=== PATIENT | female | born 1950 | race Caucasian/White ===

== ENCOUNTER 2019-02-10 05:26 | Emergency (ER) | payer OTHER, SELFPAY ==
[2019-02-10 05:34] VITALS: BP 145/95; PULSE 83; RESP 15; TEMP 37.7; O2SAT 100; BMI 24.7
--- NOTE | 2019-02-10 05:35 | ED.ARRPALP ---
HPI - Arrhythmia/Palpitations General Chief Complaint: Arrhythmia/Palpitations Stated Complaint: states AFIB Time Seen by Provider: 02/10/19 05:30 Source: patient and family Mode of arrival: ambulatory Limitations: no limitations History of Present Illness HPI narrative: 68-year-old female nonsmoker with recently diagnosed atrial fibrillation presents to the emergency department with her in the chief complaint of palpitations shortness of breath and lightheadedness that started suddenly at 4:00 a.m. this morning. She denies any chest pain. Two weeks ago she was traveling in [facility] when she had similar symptoms and presented to an emergency department there. She was diagnosed with newly discovered atrial fibrillation and while preparing to cardiovert the patient spontaneously converted while urinating. When discharge she was placed on Cardizem and 1 week anticoagulation. She followed up with her primary care provider and is scheduled for an echocardiogram later today. She is no longer anticoagulated. She is very certain that her symptoms started less than 2 hours ago. MD complaint: rapid heart beat, heart racing, palpitations and irregular heart beat Onset (ago): hour(s) Duration: constant Severity: moderate Context: occurred during rest Arrhythmia history: atrial fibrillation Associated symptoms: shortness of breath and anxiety Treatments prior to arrival: vagal maneuvers and calcium channel luis carlos Related Data Allergies Allergy/AdvReac Type Severity Reaction Status Date / Time Penicillins Allergy Verified 02/10/19 05:34 Sulfa (Sulfonamide Allergy Verified 02/10/19 05:34 Antibiotics) Review of Systems Constitutional Denies chills, Denies fever(s), Denies lethargy and Denies weakness Eyes Denies change in vision, Denies eye discharge, Denies irritation and Denies loss of vision ENT Ears, Nose, Mouth, and Throat: Denies change in voice, Denies neck pain and Denies sore throat Cardiovascular Denies chest pain, Reports irregular heart rhythm, Reports lightheadedness, Reports palpitations, Reports dyspnea, Denies dyspnea on exertion and Denies orthopnea Respiratory Denies cough, Reports dyspnea, Denies dyspnea on exertion and Denies wheezing Gastrointestinal Gastrointestinal: Denies abdominal pain, Denies change in bowel habits, Denies diarrhea, Denies nausea and Denies vomiting Genitourinary Denies hematuria, Denies flank pain, Denies urinary incontinence and Denies urinary urgency Musculoskeletal Denies neck pain Integumentary/Breasts Denies pruritus, Denies erythema, Denies rash and Denies wounds Neurologic Denies confusion, Denies loss of vision and Denies weakness Psychiatric Denies anxiety, Denies confusion, Denies depression, Denies homicidal ideation and Denies suicidal ideation Endocrine Reports palpitations Hematologic/Lymphatic Denies easy bruising Allergic/Immunologic Denies wheezing [facility] Medical History (Updated 02/10/19 @ 06:49 by Jozef Mario DO) Atrial fibrillation (Acute) Exam Narrative Exam Narrative: GENERAL: 68-year-old female is quite pleasant, alert and oriented, a bit anxious. HEAD: Atraumatic. Normocephalic. No temporal or scalp tenderness. EYES: Pupils equal round and reactive. Extraocular motions intact. No scleral icterus. No injection or drainage. ENT: Nose without bleeding, purulent drainage or septal hematoma. Throat without erythema, tonsillar hypertrophy or exudate. Uvula midline. Airway patent. NECK: Trachea midline. No JVD or lymphadenopathy. Supple, nontender, no meningeal signs. CARDIOVASCULAR: Tachycardic and irregular without murmurs, gallops, or rubs. RESPIRATORY: Clear to auscultation. Breath sounds equal bilaterally. No wheezes, rales, or rhonchi. GASTROINTESTINAL: Abdomen soft, non-tender, nondistended. No hepato-splenomegaly, or palpable masses. No guarding. EXTREMITIES: No clubbing, cyanosis, or edema. No joint tenderness, effusion, or edema noted. BACK: Nontender without deformity or crepitance. No flank tenderness. NEURO: AOx3. SKIN: No rash or erythema. Initial Vital Signs Initial Vital Signs: Vital Signs Temperature 100 F H 02/10/19 05:34 Pulse Rate 83 02/10/19 05:34 Respiratory Rate 15 02/10/19 05:34 Blood Pressure 145/95 H 02/10/19 05:34 Pulse Oximetry 100 02/10/19 05:34 Procedures Cardioversion Consent Signed: Yes Indication: Rapid Afib Stability: Stable Time out performed: Yes Preparation: potline monitor applied, pulse oximeter, capnometry used, supplemental O2 applied, suction/airway equipment at bedside and IV secured IV Propofol Dose (mgs): 40 Total Time of Sedation (Min): 10 Number of attempts (shocks): 1 Joules used: 50 Cardiac rhythm post-cardioversion: NSR Patient tolerated procedure sedation: Well Complications sedation: none Procedural Sedation Patient Age: Patient is 5yrs or older Consent signed: Yes Time out performed: Yes Indication: other ASA Class: I Mallampati Airway Classification: Class I Preparation: potline monitor applied, pulse oximeter, capnometry used, supplemental O2 applied, suction/airway equipment at bedside and IV secured IV Propofol dose (mg): 40 ED Sedation Level: Moderate (Concious) Patient Tolerated Procedure: Well Complications: none Course Orders Ordered: ED Orders 02/10/19 05:39 Basic Metabolic Panel Stat Complete Blood Count AUTO DIFF Stat Magnesium Stat Troponin & CK Cardiac Panel Stat 02/10/19 06:05 EKG-12 Lead Stat 02/10/19 07:00 EKG-12 Lead Stat 02/10/19 07:01 EKG-12 Lead Stat Sodium Chloride (Normal Saline 0.9%) 1,000 mls @ 150 mls/hr IV CONT REZA Last Admin: 02/10/19 05:53 Dose: 150 mls/hr Propofol (Diprivan) 40 mg IV NOW ONE Stop: 02/10/19 07:01 Discontinued Medications Diltiazem HCl (Cardizem) 10 mg IV NOW ONE Stop: 02/10/19 05:48 Last Admin: 02/10/19 05:53 Dose: 10 mg Reevaluation(s) Reevaluation #1: Patient given Cardizem 10 mg IVP a brief slowing from the A1 30s and 140s down to the 90s. During this episode a modified Valsalva maneuver was performed and no conversion to a sinus rhythm realized. Vital Signs - 8 hr 02/10/19 05:34 02/10/19 05:53 02/10/19 06:13 Temperature 100 F H Pulse Rate 83 132 H 96 H Respiratory Rate 15 16 Blood Pressure 145/95 H 145/95 H Blood Pressure [Right Arm] 129/79 Pulse Oximetry 100 96 MDM - Arrhythmia/Palpitations Lab Data Attestation: I reviewed the patient's lab results. Result diagrams: 02/10/19 05:39 02/10/19 05:39 Lab Results 02/10/19 02/10/19 Range/Units 05:39 05:39 WBC 5.4 (4.5-11.0) X10^3/uL RBC 4.35 (4.0-5.2) X10^6/uL Hgb 14.2 (12.0-16.0) g/dL Hct 41.2 (36-46) % MCV 94.7 (80-100) fL MCH 32.6 (26-34) PG MCHC 34.5 (30-36) % RDW 13.5 (11.6-14.8) % Plt Count 286 (150-400) X10^3/uL Neut % (Auto) 34.7 L (50-75) % Lymph % (Auto) 47.8 H (25-40) % [place] % (Auto) 10.6 (3-14) % Eos % (Auto) 4.9 H (2-4) % Baso % (Auto) 2.0 (0-2) % Neut # (Auto) 1900 (5403-1175) /uL Lymph # (Auto) 2600 (2394-2052) /uL [place] # (Auto) 600 (0-900) /uL Eos # (Auto) 300 (0-450) /uL Baso # (Auto) 100 (0-100) /uL Sodium 141 (137-145) mmol/L Potassium 3.7 (3.4-5.1) mmol/L Chloride 104 (98-107) mmol/L Carbon Dioxide 28 (22-32) mmol/L BUN 18 H (7-17) mg/dL Creatinine 1.00 (0.52-1.04) mg/dL Estimated GFR 54.8 L (>60) mL/min BUN/Creatinine Ratio 18.0 (6-22) Glucose 96 (80-110) mg/dL Calcium 9.4 (8.4-10.2) mg/dL Magnesium 1.8 (1.6-2.3) mg/dL Total Creatine Kinase 56 (30-135) U/L CK-MB (CK-2) TNP CK-MB (CK-2) Rel Index TNP Troponin I < 0.012 (0.01-0.034) ng/mL ECG Data Attestation: I personally reviewed and interpreted this ECG as follows: Interpretation: Rapid AFib in the 140s without signs of ischemia Repeat EKG EKG is normal sinus rhythm rate [ 62] and free of any signs of ischemia or ectopy. No ST segmental elevation or depression. No T wave inversions Discharge Plan Departure Patient Disposition: Home Clinical Impression: Atrial fibrillation Qualifiers: Atrial fibrillation type: paroxysmal Qualified Code(s): I48.0 - Paroxysmal atrial fibrillation Instructions: DI for Atrial Fibrillation Activity Restrictions/Additional Instructions: *You have been diagnosed with [ rapid atrial fibrillation] *What to do: * continue to take medications as directed *Follow up with your primary care provider in 2-3 days, call for an appointment. Let them know you were seen in the Emergency Department and that we ask that you be seen in follow up *Return to ER if you should have any new, worsening or concerning symptoms Referrals: Yuli Lawrence MD [Physician] -
[2019-02-10 05:53] VITALS: BP 145/95; PULSE 132
[2019-02-10] MEDS: dilTIAZem 5 MG/ML SDV 10 MG IV (05:53)
[2019-02-10] MEDS: SODIUM CHLORIDE 0.9% 1,000 ML 150 ML IV (05:53)
[2019-02-10 06:06] LABS: Add Manual Diff / Slide Review NO; Basophils Absolute Auto 100 /uL (0-100); Eosinophils Absolute Auto 300 /uL (0-450); Eosinophils Percent Auto 4.9 % (2-4); Hematocrit 41.2 % (36-46); Hemoglobin 14.2 g/dL (12.0-16.0); Lymphocytes Absolute Auto 2600 /uL (1100-4500); Lymphocytes Percent Auto 47.8 % (25-40); Mean Corpuscular HGB Conc 34.5 % (30-36); Mean Corpuscular Hemoglobin 32.6 PG (26-34); Mean Corpuscular Volume 94.7 fL (80-100); Monocytes Absolute Auto 600 /uL (0-900); Monocytes Percent Auto 10.6 % (3-14); Neutrophils Absolute Auto 1900 /uL (1500-7000); Neutrophils Percent Auto 34.7 % (50-75); Platelet Count 286 X10^3/uL (150-400); Red Blood Cell Count 4.35 X10^6/uL (4.0-5.2); Red Cell Distribution Width 13.5 % (11.6-14.8); White Blood Cell Count 5.4 X10^3/uL (4.5-11.0)
[2019-02-10 06:13] VITALS: BP 129/79; PULSE 96; RESP 16; O2SAT 96
[2019-02-10 06:14] LABS: Blood Urea Nitrogen 18 mg/dL (7-17); Calcium 9.4 mg/dL (8.4-10.2); Carbon Dioxide 28 mmol/L (22-32); Chloride 104 mmol/L (98-107); Creatine Kinase 56 U/L (30-135); Estimated Glomerular Filt Rate 54.8 mL/min (>60); Glucose 96 mg/dL (80-110); HEMOLYSIS 15 (0-50); Magnesium 1.8 mg/dL (1.6-2.3); Potassium 3.7 mmol/L (3.4-5.1); Sodium 141 mmol/L (137-145)
--- NOTE | 2019-02-10 06:19 | ED_ITS ---
HPI - Arrhythmia/Palpitations General Chief Complaint: Arrhythmia/Palpitations Stated Complaint: states AFIB Time Seen by Provider: 02/10/19 05:30 Source: patient and family Mode of arrival: ambulatory Limitations: no limitations History of Present Illness HPI narrative: 68-year-old female nonsmoker with recently diagnosed atrial fibrillation presents to the emergency department with her in the chief complaint of palpitations shortness of breath and lightheadedness that started suddenly at 4:00 a.m. this morning. She denies any chest pain. Two weeks ago she was traveling in [facility] when she had similar symptoms and presented to an emergency department there. She was diagnosed with newly discovered atrial fibrillation and while preparing to cardiovert the patient spontaneously converted while urinating. When discharge she was placed on Cardizem and 1 week anticoagulation. She followed up with her primary care provider and is scheduled for an echocardiogram later today. She is no longer anticoagulated. She is very certain that her symptoms started less than 2 hours ago. MD complaint: rapid heart beat, heart racing, palpitations and irregular heart beat Onset (ago): hour(s) Duration: constant Severity: moderate Context: occurred during rest Arrhythmia history: atrial fibrillation Associated symptoms: shortness of breath and anxiety Treatments prior to arrival: vagal maneuvers and calcium channel luis carlos Related Data Allergies Allergy/AdvReac Type Severity Reaction Status Date / Time Penicillins Allergy Verified 02/10/19 05:34 Sulfa (Sulfonamide Allergy Verified 02/10/19 05:34 Antibiotics) Review of Systems Constitutional Denies chills, Denies fever(s), Denies lethargy and Denies weakness Eyes Denies change in vision, Denies eye discharge, Denies irritation and Denies loss of vision ENT Ears, Nose, Mouth, and Throat: Denies change in voice, Denies neck pain and Denies sore throat Cardiovascular Denies chest pain, Reports irregular heart rhythm, Reports lightheadedness, Reports palpitations, Reports dyspnea, Denies dyspnea on exertion and Denies orthopnea Respiratory Denies cough, Reports dyspnea, Denies dyspnea on exertion and Denies wheezing Gastrointestinal Gastrointestinal: Denies abdominal pain, Denies change in bowel habits, Denies diarrhea, Denies nausea and Denies vomiting Genitourinary Denies hematuria, Denies flank pain, Denies urinary incontinence and Denies urinary urgency Musculoskeletal Denies neck pain Integumentary/Breasts Denies pruritus, Denies erythema, Denies rash and Denies wounds Neurologic Denies confusion, Denies loss of vision and Denies weakness Psychiatric Denies anxiety, Denies confusion, Denies depression, Denies homicidal ideation and Denies suicidal ideation Endocrine Reports palpitations Hematologic/Lymphatic Denies easy bruising Allergic/Immunologic Denies wheezing [facility] Medical History (Updated 02/10/19 @ 06:49 by Jozef Mario DO) Atrial fibrillation (Acute) Exam Narrative Exam Narrative: GENERAL: 68-year-old female is quite pleasant, alert and oriented, a bit anxious. HEAD: Atraumatic. Normocephalic. No temporal or scalp tenderness. EYES: Pupils equal round and reactive. Extraocular motions intact. No scleral icterus. No injection or drainage. ENT: Nose without bleeding, purulent drainage or septal hematoma. Throat without erythema, tonsillar hypertrophy or exudate. Uvula midline. Airway patent. NECK: Trachea midline. No JVD or lymphadenopathy. Supple, nontender, no meningeal signs. CARDIOVASCULAR: Tachycardic and irregular without murmurs, gallops, or rubs. RESPIRATORY: Clear to auscultation. Breath sounds equal bilaterally. No wheezes, rales, or rhonchi. GASTROINTESTINAL: Abdomen soft, non-tender, nondistended. No hepato- splenomegaly, or palpable masses. No guarding. EXTREMITIES: No clubbing, cyanosis, or edema. No joint tenderness, effusion, or edema noted. BACK: Nontender without deformity or crepitance. No flank tenderness. NEURO: AOx3. SKIN: No rash or erythema. Initial Vital Signs Initial Vital Signs: Vital Signs Temperature 100 F H 02/10/19 05:34 Pulse Rate 83 02/10/19 05:34 Respiratory Rate 15 02/10/19 05:34 Blood Pressure 145/95 H 02/10/19 05:34 Pulse Oximetry 100 02/10/19 05:34 Procedures Cardioversion Consent Signed: Yes Indication: Rapid Afib Stability: Stable Time out performed: Yes Preparation: regional ehs manager applied, pulse oximeter, capnometry used, supplemental O2 applied, suction/airway equipment at bedside and IV secured IV Propofol Dose (mgs): 40 Total Time of Sedation (Min): 10 Number of attempts (shocks): 1 Joules used: 50 Cardiac rhythm post-cardioversion: NSR Patient tolerated procedure sedation: Well Complications sedation: none Procedural Sedation Patient Age: Patient is 5yrs or older Consent signed: Yes Time out performed: Yes Indication: other ASA Class: I Mallampati Airway Classification: Class I Preparation: regional ehs manager applied, pulse oximeter, capnometry used, supplemental O2 applied, suction/airway equipment at bedside and IV secured IV Propofol dose (mg): 40 ED Sedation Level: Moderate (Concious) Patient Tolerated Procedure: Well Complications: none Course Orders Ordered: ED Orders 02/10/19 05:39 Basic Metabolic Panel Stat Complete Blood Count AUTO DIFF Stat Magnesium Stat Troponin & CK Cardiac Panel Stat 02/10/19 06:05 EKG-12 Lead Stat 02/10/19 07:00 EKG-12 Lead Stat 02/10/19 07:01 EKG-12 Lead Stat Sodium Chloride (Normal Saline 0.9%) 1,000 mls @ 150 mls/hr IV CONT REZA Last Admin: 02/10/19 05:53 Dose: 150 mls/hr Propofol (Diprivan) 40 mg IV NOW ONE Stop: 02/10/19 07:01 Discontinued Medications Diltiazem HCl (Cardizem) 10 mg IV NOW ONE Stop: 02/10/19 05:48 Last Admin: 02/10/19 05:53 Dose: 10 mg Reevaluation(s) Reevaluation #1: Patient given Cardizem 10 mg IVP a brief slowing from the A1 30s and 140s down to the 90s. During this episode a modified Valsalva maneuver was performed and no conversion to a sinus rhythm realized. Vital Signs - 8 hr 02/10/19 05:34 02/10/19 05:53 02/10/19 06:13 Temperature 100 F H Pulse Rate 83 132 H 96 H Respiratory Rate 15 16 Blood Pressure 145/95 H 145/95 H Blood Pressure [Right Arm] 129/79 Pulse Oximetry 100 96 MDM - Arrhythmia/Palpitations Lab Data Attestation: I reviewed the patient's lab results. Result diagrams: 02/10/19 05:39 02/10/19 05:39 Lab Results 02/10/19 02/10/19 Range/Units 05:39 05:39 WBC 5.4 (4.5-11.0) X10^3/uL RBC 4.35 (4.0-5.2) X10^6/uL Hgb 14.2 (12.0-16.0) g/dL Hct 41.2 (36-46) % MCV 94.7 (80-100) fL MCH 32.6 (26-34) PG MCHC 34.5 (30-36) % RDW 13.5 (11.6-14.8) % Plt Count 286 (150-400) X10^3/uL Neut % (Auto) 34.7 L (50-75) % Lymph % (Auto) 47.8 H (25-40) % Love % (Auto) 10.6 (3-14) % Eos % (Auto) 4.9 H (2-4) % Baso % (Auto) 2.0 (0-2) % Neut # (Auto) 1900 (1497-3018) /uL Lymph # (Auto) 2600 (5347-4601) /uL Love # (Auto) 600 (0-900) /uL Eos # (Auto) 300 (0-450) /uL Baso # (Auto) 100 (0-100) /uL Sodium 141 (137-145) mmol/L Potassium 3.7 (3.4-5.1) mmol/L Chloride 104 (98-107) mmol/L Carbon Dioxide 28 (22-32) mmol/L BUN 18 H (7-17) mg/dL Creatinine 1.00 (0.52-1.04) mg/dL Estimated GFR 54.8 L (>60) mL/min BUN/Creatinine Ratio 18.0 (6-22) Glucose 96 (80-110) mg/dL Calcium 9.4 (8.4-10.2) mg/dL Magnesium 1.8 (1.6-2.3) mg/dL Total Creatine Kinase 56 (30-135) U/L CK-MB (CK-2) TNP CK-MB (CK-2) Rel Index TNP Troponin I < 0.012 (0.01-0.034) ng/mL ECG Data Attestation: I personally reviewed and interpreted this ECG as follows: Interpretation: Rapid AFib in the 140s without signs of ischemia Repeat EKG EKG is normal sinus rhythm rate [ 62] and free of any signs of ischemia or ectopy. No ST segmental elevation or depression. No T wave inversions Discharge Plan Departure Patient Disposition: Home Clinical Impression: Atrial fibrillation Qualifiers: Atrial fibrillation type: paroxysmal Qualified Code(s): I48.0 - Paroxysmal atrial fibrillation Instructions: DI for Atrial Fibrillation Activity Restrictions/Additional Instructions: *You have been diagnosed with [ rapid atrial fibrillation] *What to do: * continue to take medications as directed *Follow up with your primary care provider in 2-3 days, call for an appointment. Let them know you were seen in the Emergency Department and that we ask that you be seen in follow up *Return to ER if you should have any new, worsening or concerning symptoms Referrals: Yuli Lawrence MD [Physician] -
[2019-02-10 06:25] LABS: Troponin I < 0.012 ng/mL (0.01-0.034)
[2019-02-10] MEDS: PROPOFOL 200 MG/20 ML VIAL 40 MG IV (06:32)
[2019-02-10 06:35] VITALS: BP 146/69; PULSE 63; RESP 18; O2SAT 95
--- NOTE | 2019-02-10 06:54 | RT ---
Assisted with concous sedation for cardioversion. Patient placed on 2 l nc with ETCO2 monitoring. SPO2 remaining 98-99%. ETCO2 reading 29-30 and RR 14. Patient awake and appropriatly conversant at end of sedation.
[2019-02-10 07:00] VITALS: BP 131/89; PULSE 57; RESP 15; O2SAT 100
[2019-02-10 07:18] VITALS: BP 131/89; PULSE 59; RESP 16; O2SAT 97
== END 2019-02-10 07:18 | disposition home or self-care (01) ==
PROVIDERS: Emergency Provider Emergency Medicine
DX: I48.0 Paroxysmal atrial fibrillation (principal); R06.02 Shortness of breath; R42 Dizziness and giddiness
CPT/HCPCS: 36591; 80048; 82550; 83735; 84484; 85025; 92960; 93005; 96361; 96374; 96375; 99283; 99285; J2704

== ENCOUNTER 2019-09-13 08:37 | Emergency (ER) | payer OTHER, SELFPAY ==
[2019-09-13 08:45] VITALS: BP 116/81; PULSE 118; RESP 24; TEMP 35.7; O2SAT 100
--- NOTE | 2019-09-13 08:45 | ED_ITS ---
HPI - Arrhythmia/Palpitations General Chief Complaint: Arrhythmia/Palpitations Stated Complaint: afib Time Seen by Provider: 09/13/19 08:45 Source: patient, family () and old records reviewed Limitations: no limitations History of Present Illness HPI narrative: This is a 69-year-old female who comes to the emergency department with complaint of irregular heartbeat. Patient states she has had about 5 episodes total throughout her life. She states that she was up about 3:00 a.m. this morning his her woke her up and she realized she was in AFib. Patient states she took 3 of for home diltiazem this morning about 3:00 a.m. hoping that it would slow her heart rate she states it maybe slow it down but it did not flip her into a normal rhythm. Patient states she feels a little lightheaded, she denies any syncope a little chest tightness, some slight shortness of breath. No nausea or vomiting. She denies any other GI or urinary symptoms. States no swelling in her lower extremities. She normally takes diltiazem 30 mg nightly. She takes an aspirin 324 mg. She was on Pradaxa or started on it but had an allergic reaction was never switched to a different anticoagulant. She states she has been cardioverted at least once maybe twice. She sometimes response to IV Cardizem. She states she does take medication for blood pressure, denies any dyslipidemia or diabetes or did hypothyroidism. States she has had a hysterectomy and breast reduction. States she is allergic to penicillin, sulfa and Pradaxa. She denies tobacco, occasional alcohol but states not in the last 24 hours, no illicit. She lives in [place] with her . Related Data Home Medications Medication Instructions Recorded Confirmed diltiazem HCl 30 mg PO BID 09/13/19 09/13/19 epinephrine 0.3 mg IM PRN PRN 09/13/19 09/13/19 hydrochlorothiazide 25 mg PO DAILY 09/13/19 09/13/19 potassium chloride 10 meq PO DAILY 09/13/19 09/13/19 Allergies Allergy/AdvReac Type Severity Reaction Status Date / Time dabigatran etexilate Allergy Verified 09/13/19 09:01 [From Pradaxa] Penicillins Allergy Verified 09/13/19 08:54 Sulfa (Sulfonamide Allergy Verified 09/13/19 08:54 Antibiotics) Review of Systems Review of Systems ROS Unobtainable: All systems reviewed & are unremarkable except as noted in HPI and below Patient History Medical History (Updated 09/13/19 @ 10:03 by Felicita Monterroso DO) Atrial fibrillation (Acute) Surgical History (Updated 09/13/19 @ 08:57 by Felicita Monterroso DO) H/O bilateral breast reduction surgery (Acute) H/O: hysterectomy (Acute) Social History (Updated 09/13/19 @ 08:57 by Felicita Monterroso DO) marital status: Smoking Status: Never smoker alcohol intake: current substance use type: does not use Exam Narrative Exam Narrative: GENERAL: Alert and oriented x three,, well-appearing female in mild distress. HEENT: Head normocephalic, atraumatic, EOMI, pupils reactive, face symmetric, moist mucous membranes NECK: Supple, full range of motion CARDIOVASCULAR: Irregularly irregular rate and rhythm without murmurs, rubs or gallops. No JVD. No edema bilateral lower extremities. RESPIRATORY: Breath sounds equal bilaterally, no wheezes rales or rhonchi. No tachypnea or accessory muscle use. ABDOMEN: Soft, nontender. Normoactive bowel sounds all 4 quadrants. No guarding or rebound, rigidity, no mass : No CVA tenderness EXTREMITIES: Normal range of motion, no clubbing or edema. Neurovascularly intact NEUROLOGICAL: Cranial nerves II through XII grossly intact. Moving all extremities SKIN: Warm, dry, no petechiae, no rashes or lesions. Initial Vital Signs Initial Vital Signs: Vital Signs Temperature 96.2 F L 09/13/19 08:45 Pulse Rate 118 H 09/13/19 08:45 Respiratory Rate 24 09/13/19 08:45 Blood Pressure 116/81 09/13/19 08:45 Pulse Oximetry 100 09/13/19 08:45 Procedures Cardioversion Consent Signed: Yes Indication: not performed patient spontaneously cardioverted just prior to procedure. Scores CHADS-VASc Congestive heart failure: no Hypertension: yes Age 75 years or older: no Diabetes mellitus: no Stroke, TIA, or TE: no Vascular disease: no Age 65 to 74 years: yes Sex category (female): Female CHADS-VASc Score: 3 Course Orders Ordered: ED Orders 09/13/19 09:05 Basic Metabolic Panel Stat Complete Blood Count AUTO DIFF Stat Magnesium Stat Thyroid Stimulating Hormone Stat Troponin & CK Cardiac Panel Stat 09/13/19 12:07 EKG-12 Lead Routine Discontinued Medications Diltiazem HCl (Cardizem) 10 mg IV NOW ONE Stop: 09/13/19 09:00 Last Admin: 09/13/19 09:32 Dose: 10 mg Documented by: BULL Sodium Chloride (Normal Saline 0.9%) 1,000 mls @ 150 mls/hr IV CONT REZA Sodium Chloride (Normal Saline 0.9%) 1,000 mls @ 1,000 mls/hr IV BOLUS ONE Stop: 09/13/19 09:58 Last Infusion: 09/13/19 12:06 Dose: 999 mls/hr Documented by: Admin: 09/13/19 09:32 Dose: 1,000 mls/hr Documented by: BULL Propofol (Diprivan) 40 mg IV NOW ONE Stop: 09/13/19 11:15 Vital Signs Vital signs: Vital Signs - 8 hr 09/13/19 10:17 09/13/19 12:32 Pulse Rate 81 76 Respiratory Rate 14 21 Blood Pressure [Left Arm] 102/66 120/69 Pulse Oximetry 94 MDM - Arrhythmia/Palpitations Lab Data Attestation: I reviewed the patient's lab results. Result diagrams: 09/13/19 09:05 09/13/19 09:05 Labs: Lab Results 09/13/19 09/13/19 09/13/19 Range/Units 09:05 09:05 09:05 WBC 3.9 L (4.5-11.0) X10^3/uL RBC 4.41 (4.0-5.2) X10^6/uL Hgb 13.9 (12.0-16.0) g/dL Hct 41.4 (36-46) % MCV 94.0 (80-100) fL MCH 31.5 (26-34) PG MCHC 33.6 (30-36) % RDW 14.1 (11.6-14.8) % Plt Count 308 (150-400) X10^3/uL Neut % (Auto) 39.8 L (50-75) % Lymph % (Auto) 42.9 H (25-40) % [place] % (Auto) 9.9 (3-14) % Eos % (Auto) 4.5 H (2-4) % Baso % (Auto) 2.9 H (0-2) % Neut # (Auto) 1600 (2286-5246) /uL Lymph # (Auto) 1700 (1808-2091) /uL [place] # (Auto) 400 (0-900) /uL Eos # (Auto) 200 (0-450) /uL Baso # (Auto) 100 (0-100) /uL Sodium 141 (137-145) mmol/L Potassium 3.6 (3.4-5.1) mmol/L Chloride 105 (98-107) mmol/L Carbon Dioxide 27 (22-32) mmol/L BUN 13 (7-17) mg/dL Creatinine 0.80 (0.52-1.04) mg/dL Estimated GFR > 60.0 (>60) mL/min BUN/Creatinine Ratio 16.3 (6-22) Glucose 106 (80-110) mg/dL Calcium 9.3 (8.4-10.2) mg/dL Magnesium 1.9 (1.6-2.3) mg/dL Total Creatine Kinase 46 (30-135) U/L CK-MB (CK-2) TNP CK-MB (CK-2) Rel Index TNP Troponin I < 0.012 (0.01-0.034) ng/mL TSH 2.94 (0.47-4.68) uIU/mL Imaging Data Chest x-ray: Radiologist's impression: [place] [address] XRay Report Signed Patient: Rosy Go LMR#: [id number] : 8Acct:[id number] Age/Sex: 69 / FDate of Service: 09/13/19 Loc: ED Accession Number: [id number] Procedure: XR chest 1V Ordering Provider: Felicita Monterroso D.O. PROCEDURE: XR CHEST 1V INDICATIONS: Arrhythmia TECHNIQUE: One view of the chest was acquired. COMPARISON: None. FINDINGS: Surgical changes and devices: None. Lungs and pleura: Lungs are clear. No pleural effusions or pneumothorax. Mediastinum: Mediastinal contours appear normal. Heart size is normal. Bones and chest wall: No suspicious bony lesions. Overlying soft tissues jr ear unremarkable. IMPRESSION: No acute process. Dictated by: Kelle Flores M.D. on 09/13/2019 at 9:38 Approved by: Kelle Flores M.D. on 09/13/2019 at 9:38 ECG Data Attestation: I personally reviewed and interpreted this ECG as follows: Prior ECG tracings: available for review Interpretation: AFib with rapid ventricular response with a rate of 119, QRS of 90 and QTC of 384. No ST elevation or depression appreciated. patient has prior EKG from 02/10/2019 which appears similar in atrial fibrillation with RVR. EKG#2, sinus bradycardia sinus rhythm a rate of 45, P are 134 QRS 81 and QTC of 370. No ST elevation or depression. Patient has prior from cardioversion on 02/10/19 with similar bradycardia at rate of [address] segments. MDM Narrative Medical decision making narrative: Patient's heart rate has improved and is now rate controlled but appears to be still irregular. Discussed with patient. She has had several episodes of atrial fibrillation it is not currently anticoagulated other than with aspirin. Patient's most recent episode started within the last 12 hours and spoke with Dr[address] 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 He feels the patient could be appropriately cardioverted here in the department. If patient is willing he would recommend anticoagulation follow-up with primary care to continue with that. Patient's chads Vasc score is 3. Just prior to cardioversion patient appeared to cardiovert. On repeat EKG shows normal sinus rhythm. Patient I discussed anticoagulation she prefers to wait today, continue her aspirin 324 mg and her diltiazem 30 mg QA chest. Patient will chat with her primary care and/or Cardiology about starting anticoagulation. We did discuss their options besides Eliquis and Pradaxa that are NOACs, she is not interested in using Coumadin. She does understand the risks and seems well informed about her disease process. Discharge Plan Departure Patient Disposition: Home Clinical Impression: Atrial fibrillation with RVR Discharge Date/Time: 09/13/19 12:30 Instructions: DI for Atrial Fibrillation Activity Restrictions/Additional Instructions: Follow-up with primary care and/or Cardiology in the next several days for recheck and discussion about starting anticoagulation. You could discuss with her physician about getting a prior authorization for Eliquis as you have had an allergic reaction to Pradaxa. Continue your other home medications as prescribed. Return to the emergency department for recurrent symptoms, elevated heart rate, palpitations, new chest pain, shortness of breath, lightheadedness or passing out, persistent vomiting, swelling in your extremities or other new or romain rning symptoms. Prescriptions: No Action potassium chloride 10 mEq Tablet Extended Release 10 meq PO DAILY RF: 0 hydrochlorothiazide 25 mg Tablet 25 mg PO DAILY RF: 0 epinephrine 0.3 mg/0.3 mL auto-injector 0.3 mg IM PRN PRN (Reason: Anaphylaxis) RF: 0 diltiazem HCl 30 mg tablet 30 mg PO BID RF: 0 Referrals: Irasema Koch MD [Primary Care Provider] -
[2019-09-13 09:24] LABS: Add Manual Diff / Slide Review NO; Basophils Absolute Auto 100 /uL (0-100); Basophils Percent Auto 2.9 % (0-2); Eosinophils Absolute Auto 200 /uL (0-450); Eosinophils Percent Auto 4.5 % (2-4); Hematocrit 41.4 % (36-46); Hemoglobin 13.9 g/dL (12.0-16.0); Lymphocytes Absolute Auto 1700 /uL (1100-4500); Lymphocytes Percent Auto 42.9 % (25-40); Mean Corpuscular HGB Conc 33.6 % (30-36); Mean Corpuscular Hemoglobin 31.5 PG (26-34); Monocytes Absolute Auto 400 /uL (0-900); Monocytes Percent Auto 9.9 % (3-14); Neutrophils Absolute Auto 1600 /uL (1500-7000); Neutrophils Percent Auto 39.8 % (50-75); Platelet Count 308 X10^3/uL (150-400); Red Blood Cell Count 4.41 X10^6/uL (4.0-5.2); Red Cell Distribution Width 14.1 % (11.6-14.8); White Blood Cell Count 3.9 X10^3/uL (4.5-11.0)
[2019-09-13 09:30] VITALS: BP 105/65; PULSE 77; RESP 19; O2SAT 97
[2019-09-13] MEDS: dilTIAZem 5 MG/ML SDV 10 MG IV (09:32)
[2019-09-13] MEDS: SODIUM CHLORIDE 0.9% 1,000 ML 1000 ML IV (09:32)
[2019-09-13 09:38] LABS: BUN Creatinine Ratio 16.3 (6-22); Blood Urea Nitrogen 13 mg/dL (7-17); Calcium 9.3 mg/dL (8.4-10.2); Carbon Dioxide 27 mmol/L (22-32); Chloride 105 mmol/L (98-107); Creatine Kinase 46 U/L (30-135); Estimated Glomerular Filt Rate > 60.0 mL/min (>60); Glucose 106 mg/dL (80-110); HEMOLYSIS < 15 (0-50); Magnesium 1.9 mg/dL (1.6-2.3); Potassium 3.6 mmol/L (3.4-5.1); Sodium 141 mmol/L (137-145)
[2019-09-13 09:50] LABS: Troponin I < 0.012 ng/mL (0.01-0.034)
[2019-09-13 10:09] LABS: Thyroid Stimulating Hormone 2.94 uIU/mL (0.47-4.68)
[2019-09-13 10:17] VITALS: BP 102/66; PULSE 81; RESP 14
--- NOTE | 2019-09-13 12:08 | PC.NURSE ---
had drawn up the propofol for cardioversion. pt converted while i was setting up. notified dr. turner, obtained a new ekg. nida rn
[2019-09-13 12:32] VITALS: BP 120/69; PULSE 76; RESP 21; O2SAT 94
== END 2019-09-13 12:30 | disposition home or self-care (01) ==
PROVIDERS: Emergency Provider Emergency Medicine; PCP Specialist
DX: I48.20 Chronic atrial fibrillation, unspecified (principal); I10 Essential (primary) hypertension
CPT/HCPCS: 36415; 71045; 80048; 82550; 83735; 84443; 84484; 85025; 93005; 93010; 96361; 96374; 99283; 99285; J2704

== ENCOUNTER 2020-06-20 10:44 | Day surgery (SDC) | payer MEDICARE, SELFPAY ==
--- NOTE | 2020-06-20 07:29 | P.OP_ITS ---
Operative Date/Time/Diagnoses Date of procedure: 06/20/20 Time of procedure: 11:45 Procedure & Clinicians Procedure: Preoperative diagnoses: 1. Left advanced cortical and nuclear sclerotic cataract requiring capsular dye for safety. 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 2. Astigmatism which is to be corrected with a toric intraocular lens implant. Postoperative diagnoses: 1. Complex cataract removal with phacoemulsification with toric posterior chamber intraocular lens implant placed and use of capsular dye. Procedure: Complex phacoemulsification with posterior chamber toric intraocular lens implant and use of capsular dye. Surgeon: Kat Meneses MD Complications: None Specimen: None Implant: [id number] [place] 002 Blood loss: None Anesthesia: Retrobulbar with monitored standby Description of procedure: Patient presents with a complaint of decreased vision due to cataract which is affecting activities of daily living. The patient wants surgery to improve vision and astigmatism. The patient was taken to the operating room and proparacaine drops placed. Indelible ink armas were placed at the 90 and 180 degree meridian. The patient was placed on the operating room table and given IV sedation. A retrobulbar block insert consisting of 6 cc of 2% xylocaine without epinephrine mixed half and half with 0.5% Marcaine with 1 cc of hyaluronidase added is placed between the medial and lateral 1/3 of the inferior orbital rim. The eye is manually massaged for 30 sec, prepped using Betadine solution, and draped in the usual sterile fashion. Temporal approach was made, a 1 mm side-port incision was made 90? from the proposed corneal wound. Phenylephrine 1.5% mixed with 1% xylocaine 0.2 cc was placed into the anterior chamber. Due to poor visibility an air bubble was placed followed by Visudyne capsular dye. The excess dye was then irrigated from the anterior chamber with BSS. Viscoat followed by Healon was then placed. A 2.6 mm clear incision with a 2.6 mm blade was placed at the 170 degree meridian. A 360 degree capsulorrhexis style capsulotomy was then performed with a cystitome needle on a Healon greatly aided by the capsular dye. Hydrodelineation and hydrodissection were performed. The phacoemulsification unit is introduced, and sculpting used to groove the central lens. It is then removed in chopping mode. Epi nucleus is removed with epinuclear mode and irrigation aspiration was used to remove the peripheral cortex. The posterior capsule is polished. The intraocular lens is selected, inspected, power confirmed, and placed in the posterior chamber at the desired meridian of 002 degrees. The pupil was not constricted. The wound was stromally hydrated and tested for leaks, there was none and it was left sutureless. Vigamox 0.1 cc was placed into the anterior chamber. Kenalog 0.2 cc was placed in the superior subconjunctival space. A drop of antibiotic and was placed and the eye was patched and shielded. The patient was stable and returned to the recovery room in excellent condition. Dictated by: Kat Meneses MD Copy to: [facility] Same procedure as scheduled: Yes
--- NOTE | 2020-06-20 07:29 | PM.PREOP ---
Pre-operative Note COVID-19 COVID-19 status: Negative Interval Note History & Physical reviewed/Exam performed by Physician: Yes Changes to H&P: No
[2020-06-20 10:53] VITALS: BP 146/77; PULSE 52; RESP 16; TEMP 36; O2SAT 100; BMI 24.3
[2020-06-20] MEDS: CATARACT EYE COMPOUND (10 DROPS/SYRINGE) 3 DROPS EYE-OP (11:07)
[2020-06-20] MEDS: PROPARACAINE 0.5% OPHTH SOL 2 DROPS EYE-OP ×2 (11:12→11:34)
[2020-06-20] MEDS: LIDOCAINE 2% 4 ML, BUPIVACAINE 0.5% (PF) 4 ML, HYALURONIDASE 150 UNIT INJ (11:45)
[2020-06-20] MEDS: CHONDROIDTIN/SOD HYALURONATE 1.05 ML SYRINGE INTRAOCULA (11:56)
[2020-06-20] MEDS: ERYTHROMYCIN OPHTH 1 GM OINT 1 APPLIC EYE-LEFT (11:57)
[2020-06-20] MEDS: PHENYLEPHRINE/LIDOCAINE VIAL (OR) 0.2 ML EYE-OP (11:57)
[2020-06-20] MEDS: MOXIFLOXACIN INJ 5 MG/ML VIAL EYE-OP (11:57)
[2020-06-20] MEDS: HYALURONATE SODIUM 10 MG/ML SYRINGE INJ (11:57)
[2020-06-20] MEDS: TRIAMCINOLONE 50 MG/5 ML VIAL INJ (11:58)
[2020-06-20] MEDS: TRYPAN BLUE 0.5 ML SYRINGE INJ (11:58)
[2020-06-20] MEDS: BALANCED SALT IRRIG SOLN NO.2 500 ML, EPINEPHrine 1 MG IRR (11:58)
[2020-06-20 13:09] VITALS: BP 159/81; PULSE 46; RESP 16; TEMP 36.4; O2SAT 100
== END 2020-06-20 13:10 | disposition home or self-care (01) ==
LOC: OR 10:45
PROVIDERS: PCP Specialist; Referring Provider Ophthalmology; Visit Provider Ophthalmology
PROC: (CPT 66982; principal; 2020-06-20 11:45)
DX: H25.812 Combined forms of age-related cataract, left eye (principal); H52.202 Unspecified astigmatism, left eye; H43.813 Vitreous degeneration, bilateral
CPT/HCPCS: 66982; J0171; J2250; J3010; J3301; J3470; V2787

== ENCOUNTER 2020-07-04 10:26 | Day surgery (SDC) | payer MEDICARE, SELFPAY ==
--- NOTE | 2020-07-03 18:48 | PM.PREOP ---
Pre-operative Note COVID-19 COVID-19 status: Negative Interval Note History & Physical reviewed/Exam performed by Physician: Yes Changes to H&P: No
--- NOTE | 2020-07-04 07:29 | P.OP_ITS ---
Operative Date/Time/Diagnoses Date of procedure: 07/04/20 Time of procedure: 11:45 Procedure & Clinicians Procedure: Insert Preoperative diagnoses: 1.Complex advanced left cortical and nuclear sclerotic cataract requiring capsular dye for visibility. 2. Astigmatism which is to be corrected with a toric intraocular lens implant. Postoperative diagnoses: 1. Complex cataract removal with phacoemulsification with toric posterior chamber intraocular lens implant placed and use of capsular dye. Procedure: Phacoemulsification with posterior chamber toric intraocular lens implant. Surgeon: Kat Meneses MD Complications: None Specimen: None Implant: [id number] [place] 176 Blood loss: None Anesthesia: Retrobulbar with monitored standby Description of procedure: Patient presents with a complaint of decreased vision due to cataract which is affecting activities of daily living distance and near. The patient wants surgery to improve vision and astigmatism. This is her 2nd eye and she is aware of COVID-19 precautions. The patient was taken to the operating room and proparacaine drops placed. Indelible ink armas were placed at the 90 and 180 degree meridian. The patient was placed on the operating room table and given IV sedation. A retrobulbar block insert consisting of 6 cc of 2% xylocaine without epinephrine mixed half and half with 0.5% Marcaine with 1 cc of hyaluronidase added is placed between the medial and lateral 1/3 of the inferior orbital rim. The eye is manually massaged for 30 sec, prepped using Betadine solution, and draped in the usual sterile fashion. Temporal approach was made, a 1 mm side-port incision was made 90? from the proposed corneal wound. Phenylephrine 1.5% mixed with 1% xylocaine 0.2 cc was placed into the anterior chamber. An air bubble was placed followed by Visudyne capsular dye was placed to maximize visibility through the capsule due to lack of red reflex. There was extensive cortical spoking us were also the visual axis. BSS was used to irrigate out of the anterior chamber. Viscoat followed by Healon was then placed. A 2.6 mm clear incision with a 2.6 mm blade was placed at the 170 degree meridian. A 360 degree capsulorrhexis style capsulotomy was then performed with a cystitome needle on a Healon. Hydrodelineation and hydrodissection were performed. The phacoemulsification unit is introduced, and sculpting used to groove the central lens. It is then removed in chopping mode. Epi nucleus is removed with epinuclear mode and irrigation aspiration was used to remove the peripheral cortex. The posterior capsule is polished. The intraocular lens is selected, inspected, power confirmed, and placed in the posterior chamber at the desired meridian of 176 degrees. The pupil was not constricted. The wound was stromally hydrated and tested for leaks, there was none and it was left sutureless. Vigamox 0.1 cc was placed into the anterior chamber. Kenalog 0.2 cc was placed in the superior subconjunctival space. A drop of antibiotic and was placed and the eye was patched and shielded. The patient was stable and returned to the recovery room in excellent condition. Dictated by: Kat Meneses MD Copy to: [facility] Same procedure as scheduled: Yes
[2020-07-04 11:06] VITALS: BP 148/77; PULSE 49; RESP 14; TEMP 36; O2SAT 100
[2020-07-04] MEDS: CATARACT EYE COMPOUND (10 DROPS/SYRINGE) 3 DROPS EYE-OP (11:14)
[2020-07-04] MEDS: PROPARACAINE 0.5% OPHTH SOL 2 DROPS EYE-OP (11:15)
[2020-07-04 11:16] VITALS: BMI 24.5
[2020-07-04] MEDS: MOXIFLOXACIN INJ 5 MG/ML VIAL EYE-OP (12:18)
[2020-07-04] MEDS: HYALURONATE SODIUM 10 MG/ML SYRINGE INJ (12:18)
[2020-07-04] MEDS: CHONDROIDTIN/SOD HYALURONATE 1.05 ML SYRINGE INTRAOCULA (12:18)
[2020-07-04] MEDS: ERYTHROMYCIN OPHTH 1 GM OINT 1 APPLIC EYE-RIGHT (12:18)
[2020-07-04] MEDS: PHENYLEPHRINE/LIDOCAINE VIAL (OR) 0.2 ML EYE-OP (12:19)
[2020-07-04] MEDS: LIDOCAINE 2% 4 ML, BUPIVACAINE 0.5% (PF) 4 ML, HYALURONIDASE 150 UNIT INJ (12:20)
[2020-07-04] MEDS: TRIAMCINOLONE 50 MG/5 ML VIAL INJ (12:20)
[2020-07-04] MEDS: BALANCED SALT IRRIG SOLN NO.2 500 ML, EPINEPHrine 1 MG IRR (12:21)
[2020-07-04] MEDS: TRYPAN BLUE 0.5 ML SYRINGE INJ (12:22)
[2020-07-04 12:53] VITALS: BP 164/72; PULSE 48; RESP 14; TEMP 36; O2SAT 100
== END 2020-07-04 13:10 | disposition home or self-care (01) ==
PROVIDERS: PCP Specialist; Referring Provider Ophthalmology; Visit Provider Ophthalmology
PROC: (CPT 66982; principal; 2020-07-04 11:45)
DX: H25.812 Combined forms of age-related cataract, left eye (principal); H52.202 Unspecified astigmatism, left eye; I10 Essential (primary) hypertension; I48.0 Paroxysmal atrial fibrillation
CPT/HCPCS: 66982; J0171; J2704; J3301; J3470; V2787